=== PATIENT | female | born 1995 | race American Indian/Alaskan Native ===

== ENCOUNTER 2017-08-14 17:19 | Emergency (ER) | payer SELFPAY ==
[2017-08-14 17:47] VITALS: BP 140/89
[2017-08-14 18:14] LABS: Basophils # (Auto) 0.1 K/mm3 (0.0-0.1); Basophils % (Auto) 0.8 % (0.0-1.8); Eosinophils % (Auto) 0.4 % (0.0-4.3); Hematocrit 40.5 % (30.3-42.9); Hemoglobin 13.7 gm/dl (10.1-14.3); Lymphocytes # (Auto) 1.9 K/mm3 (1.2-5.4); Lymphocytes % (Auto) 16.8 % (13.4-35.0); Mean Corpuscular HGB Conc 34 % (30-34); Mean Corpuscular Hemoglobin 32 pg (28-32); Mean Corpuscular Volume 95 fl (79-97); Monocytes # (Auto) 0.8 K/mm3 (0.0-0.8); Platelet Count 362 K/mm3 (140-440); Red Blood Count 4.27 M/mm3 (3.65-5.03); Red Cell Distribution Width 14.8 % (13.2-15.2)
== END 2017-08-14 20:24 | disposition left against medical advice (07) ==
LOC: ED 17:19
DX: N93.9 Abnormal uterine and vaginal bleeding, unspecified (principal); Z53.21 Procedure and treatment not carried out due to patient leaving prior to being seen by health care provider
CPT/HCPCS: 36415; 84702; 85025; 86850; 86900; 86901

== ENCOUNTER 2017-12-18 14:01 | Emergency (ER) | payer MEDICAID ==
[2017-12-18 15:11] VITALS: BP 130/77
--- NOTE | 2017-12-18 18:55 | Ultrasound Report ---
FINAL REPORT EXAM: US OB TRANSVAGINAL HISTORY: vaginal bleeding TECHNIQUE: Ultrasound obstetrical transvaginal PRIORS: None. FINDINGS: Within the lower uterine segment just adjacent to the cervix there is an irregular sac-like structure within irregular echogenic focus seen centrally measuring 1.05 x 0.42 centimeters. No yolk sac identified and no cardiac activity is identified on Doppler evaluation. The right ovary is 2.9 x 1.4 x 2.7 centimeters Left ovary is 2.8 x 1.7 x 1.8 centimeters. Complex cyst cystic structures are observed in the left ovary 0.9 and 0.6 centimeters likely reflecting involuting cysts The uterus measures 8.5 x 3.9 x 4.8 centimeters with endometrial thickness 0.54 centimeters IMPRESSION: On complex structure within the lower uterine segment near the cervix likely reflecting incomplete spontaneous AB
--- NOTE | 2017-12-18 18:56 | Ultrasound Report ---
FINAL REPORT EXAM: US OB < = 14 WEEKS FETUS HISTORY: vaginal bleeding TECHNIQUE: Ultrasound pelvis transabdominal PRIORS: None. FINDINGS: Within the lower uterine segment just adjacent to the cervix there is an irregular sac-like structure within irregular echogenic focus seen centrally measuring 1.05 x 0.42 centimeters. No yolk sac identified and no cardiac activity is identified on Doppler evaluation. The right ovary is 2.9 x 1.4 x 2.7 centimeters Left ovary is 2.8 x 1.7 x 1.8 centimeters. Complex cyst cystic structures are observed in the left ovary 0.9 and 0.6 centimeters likely reflecting involuting cysts The uterus measures 8.5 x 3.9 x 4.8 centimeters with endometrial thickness 0.54 centimeters IMPRESSION: complex structure within the lower uterine segment near the cervix likely reflecting incomplete spontaneous AB
--- NOTE | 2017-12-18 21:04 | Emergency Department Report ---
ED Female HPI - General Chief complaint: Vaginal Bleeding Stated complaint: /CHECK UP/ BLEEDING CRAMPING Time Seen by Provider: 12/18/17 21:01 Source: patient Mode of arrival: Ambulatory Limitations: No Limitations - History of Present Illness Initial comments: 22-year-old Debbie female 2 para 1 comes in stating that she had a positive home test and unsure how many weeks she could be. Patient complains of scant vaginal bleeding intermittently since Friday and abdominal cramping since Friday. She said yesterday is when she had increased vaginal bleeding and cramps were also increase in intensity. Patient not sure when her last menstrual period she thinks it was around September because she had more days or 1 but it was unusually sustained at that time. She did not have a period in October or November. Patient will be she had follow-up with her first was at [place]. -: days(s) (3) Location: suprapubic Severity: moderate Severity scale (0 -10): 5 Quality: cramping Consistency: intermittent Improves with: none Worsens with: none Are you Now?: Yes Associated Symptoms: vaginal bleeding. denies: vaginal discharge - Related Data Sexually active: Yes (men unprotected) : 2 Para: 1 Home Medications Medication Instructions Recorded Confirmed Last Taken No Known Home Medications [No 05/07/13 05/07/13 Unknown Reported Home Medications] Allergies Allergy/AdvReac Type Severity Reaction Status Date / Time No Known Allergies Allergy Verified 03/06/16 19:57 ED Review of Systems ROS: Stated complaint: /CHECK UP/ BLEEDING CRAMPING Other details as noted in HPI Comment: All other systems reviewed and negative Constitutional: denies: chills, fever Gastrointestinal: abdominal pain (pelvic cramping) Genitourinary: other (vaginal bleeding) ED Past Medical Hx - Past Medical History Hx Hypertension: Yes Additional medical history: CHILDBIRTH - Surgical History Additional Surgical History: X 1 - Social History Smoking Status: Current Every Day Smoker Substance Use Type: None - Medications Home Medications: Home Medications Medication Instructions Recorded Confirmed Last Taken Type No Known Home Medications [No 05/07/13 05/07/13 Unknown History Reported Home Medications] ED Physical Exam - General Limitations: No Limitations General appearance: alert, in no apparent distress - Head Head exam: Present: atraumatic, normocephalic - Eye Eye exam: Present: EOMI - ENT ENT exam: Present: mucous membranes moist - Respiratory Respiratory exam: Present: normal lung sounds bilaterally. Absent: respiratory distress - Cardiovascular Cardiovascular Exam: Present: regular rate, normal rhythm. Absent: systolic murmur, diastolic murmur, rubs, gallop - External exam: Present: normal external exam Speculum exam: Present: vaginal bleeding, other (cervical bleeding with clots coming from the os) Bi-manual exam: Present: normal bi-manual exam - Extremities Exam Extremities exam: Present: normal inspection - Back Exam Back exam: Present: normal inspection - Neurological Exam Neurological exam: Present: alert, oriented X3 - Psychiatric Psychiatric exam: Present: agitated - Skin Skin exam: Present: warm, dry, intact, normal color. Absent: rash ED Course Vital Signs 12/18/17 15:06 Temperature 99.3 F Pulse Rate 90 Respiratory 18 Rate Blood Pressure 130/77 O2 Sat by Pulse 100 Oximetry ED Medical Decision Making - Radiology Data Radiology results: report reviewed FINAL REPORT EXAM: US OB TRANSVAGINAL HISTORY: vaginal bleeding TECHNIQUE: Ultrasound obstetrical transvaginal PRIORS: None. FINDINGS: Within the lower uterine segment just adjacent to the cervix there is an irregular sac-like structure within irregular echogenic focus seen centrally measuring 1.05 x 0.42 centimeters. No yolk sac identified and no cardiac activity is identified on Doppler evaluation. The right ovary is 2.9 x 1.4 x 2.7 centimeters Left ovary is 2.8 x 1.7 x 1.8 centimeters. Complex cyst cystic structures are observed in the left ovary 0.9 and 0.6 centimeters likely reflecting involuting cysts The uterus measures 8.5 x 3.9 x 4.8 centimeters with endometrial thickness 0.54 centimeters IMPRESSION: On complex structure within the lower uterine segment near the cervix likely reflecting incomplete spontaneous AB Transcribed By: NOHEMI Dictated By: JODI WERNER MD Electronically Authenticated By: JODI WERNER MD Signed Date/Time: 12/18/171853 DD/ 53 TD/TT: 12/18/171853 - Medical Decision Making She has been evaluated by this provider fast track. Ultrasound pelvic and transvaginal ordered and completed Called to [employer] to discuss case Patient is low prior to having her H&H completed. Critical care attestation.: If time is entered above; I have spent that time in minutes in the direct care of this critically ill patient, excluding procedure time. ED Disposition Disposition: ELOPED Is pt being admited?: No Does the pt Need Aspirin: No Condition: Undetermined Referrals: PRIMARY CARE, [Primary Care Provider] - 3-5 Days
== END 2017-12-18 21:45 | disposition left against medical advice (07) ==
LOC: ED 14:01
DX: O46.90 Antepartum hemorrhage, unspecified, unspecified trimester (principal); O99.330 Smoking (tobacco) complicating pregnancy, unspecified trimester; Z3A.00 Weeks of gestation of pregnancy not specified
CPT/HCPCS: 36415; 76801; 76817; 84702; 86850; 86900; 86901

== ENCOUNTER 2018-10-26 09:05 | Inpatient (IN) | payer MEDICAID ==
--- NOTE | 2018-10-26 09:44 | Anesthesia Day of Surgery ---
Anesthesia Day of Surgery - Day of Surgery Patient Examined: Yes Patient H&P Reviewed: Yes Patient is NPO: Yes Beta Blockers: No Cardiac Clearance: No Pulmonary Clearance: No Candelario's Test: N/A
--- NOTE | 2018-10-26 09:44 | Anesthesia Consultation ---
Anesthesia Consult and Med Hx Date of service: 10/26/18 - Airway Anesthetic Teeth Evaluation: Good ROM Head & Neck: Adequate Mental/Hyoid Distance: Adequate Mallampati Class: Class II Intubation Access Assessment: Probably Good - Pulmonary Exam CTA: Yes - Cardiac Exam Cardiac Exam: RRR - Pre-Operative Health Status ASA Pre-Surgery Classification: ASA2 Proposed Anesthetic Plan: Spinal - Pulmonary Hx Smoking: No Hx Asthma: No Hx Respiratory Symptoms: No SOB: No COPD: No Home Oxygen Therapy: No Hx Pneumonia: No Hx Sleep Apnea: No - Cardiovascular System Hx Hypertension: Yes Hx Coronary Artery Disease: No Hx Heart Attack/AMI: No Hx Angina: No Hx Percutaneous Transluminal Coronary Angioplasty (PTCA): No Hx Cardia Arrhythmia: No Hx Pacemaker: No Hx Internal Defibrillator: No Hx Valvular Heart Disease: No Hx Heart Murmur: No Hx Peripheral Vascular Disease: No - Central Nervous System Hx Neuromuscular Disorder: No Hx Seizures: No CVA: No Hx Back Pain: No Hx Psychiatric Problems: No - Gastrointestinal Hx Ulcer: No Hx Gastroesophageal Reflux Disease: Yes - Endocrine Hx Renal Disease: No Hx End Stage Renal Disease: No Hx Cirrhosis: No Hx Liver Disease: No Hx Insulin Dependent Diabetes: No Hx Non-Insulin Dependent Diabetes: No Hx Thyroid Disease: No Hx Hypothyroidism: No Hx Hyperthyroidism: No - Hematic Hx Anemia: No Hx Sickle Cell Disease: No - Other Systems Hx Alcohol Use: No Hx Substance Use: No Hx Cancer: No Hx Obesity: No
[2018-10-26] MEDS ORDERED: PHENERGAN PR PRN ×2 (10:00→12:46)
[2018-10-26] MEDS ORDERED: PHENERGAN PO PRN (10:00)
[2018-10-26] MEDS ORDERED: SODIUM CHLORIDE FLUSH SYRINGE 10 ML IV PRN (10:00)
[2018-10-26] MEDS ORDERED: DILAUDID IV PRN ×2 (10:00→11:00)
[2018-10-26] MEDS ORDERED: BENADRYL IV PRN (10:00)
[2018-10-26] MEDS ORDERED: LACTATED RINGERS 2,000 ML ONE (10:28)
[2018-10-26] MEDS ORDERED: ZOFRAN IV PRN ×2 (10:30→12:46)
[2018-10-26] MEDS ORDERED: REGLAN ONE (10:51)
[2018-10-26] MEDS ORDERED: PEPCID IV ONE (10:51)
[2018-10-26] MEDS ORDERED: BICITRA ONE (10:51)
[2018-10-26] MEDS ORDERED: ANCEF/STERILE WATER 2 GM/20 ML 2 GM/20 ML SYRINGE IV NR (11:00)
[2018-10-26] MEDS ORDERED: REGLAN IV NR (11:00)
[2018-10-26] MEDS ORDERED: PITOCin/NS 20 UNIT/1000ML DRIP 20 UNITS/1,000 ML BAG IV SCH ×2 (11:00→13:00)
[2018-10-26 11:11] LABS: Basophils % (Auto) 0.5 % (0.0-1.8); Eosinophils # (Auto) 0.1 K/mm3 (0.0-0.4); Eosinophils % (Auto) 0.5 % (0.0-4.3); Hematocrit 38.3 % (30.3-42.9); Hemoglobin 12.9 gm/dl (10.1-14.3); Lymphocytes # (Auto) 1.3 K/mm3 (1.2-5.4); Lymphocytes % (Auto) 12.3 % (13.4-35.0); Mean Corpuscular HGB Conc 34 % (30-34); Mean Corpuscular Volume 100 fl (79-97); Monocytes # (Auto) 0.9 K/mm3 (0.0-0.8); Monocytes % (Auto) 8.9 % (0.0-7.3); Platelet Count 255 K/mm3 (140-440); Red Blood Count 3.82 M/mm3 (3.65-5.03); Red Cell Distribution Width 14.4 % (13.2-15.2)
[2018-10-26] MEDS ORDERED: LACTATED RINGERS 1,000 ML IV ONE (11:36)
[2018-10-26] MEDS ORDERED: PEPCID IV SCH (11:38)
[2018-10-26] MEDS ORDERED: BICITRA PO ONE (11:39)
[2018-10-26] MEDS ORDERED: SUBLIMAZE ONE (11:39)
--- NOTE | 2018-10-26 11:42 | History and Physical Report ---
History of Present Illness Date of examination: 10/26/18 Date of admission: 10/26/18 09:05 Chief complaint: repeat csec scheduled History of present illness: This is a 23 yo at 39 weeks here for scheduled repeat csec. She is a patient of [facility] Past History Past Medical History: no pertinent history Past Surgical History: section Family/Genetic History: none Social history: single. denies: smoking, alcohol abuse, prescription drug abuse - Obstetrical History : 3 Para: 1 Hx # Term Pregnancies: 1 Number of Pregnancies: 0 Spontaneous Abortions: 1 Induced : 0 Number of Living Children: 1 Medications and Allergies Allergies Allergy/AdvReac Type Severity Reaction Status Date / Time No Known Allergies Allergy Verified 03/06/16 19:57 Home Medications Medication Instructions Recorded Confirmed Last Taken Type No Known Home Medications [No 05/07/13 05/07/13 Unknown History Reported Home Medications] Active Meds: Active Medications Citric Acid/Sodium Citrate (Bicitra) 30 ml PO ONCE ONE Stop: 10/26/18 11:40 Last Admin: 10/26/18 11:09 Dose: 30 ml Documented by: Diphenhydramine HCl (Benadryl) 12.5 mg IV Q2H PRN PRN Reason: Itching Famotidine (Pepcid) 20 mg IV QDAY COLEMAN Hydromorphone HCl (Dilaudid) 0.5 mg IV Q5M PRN PRN Reason: Breakthrough Pain Stop: 10/26/18 17:00 Hydromorphone HCl (Dilaudid) 0.5 mg IV Q4H PRN PRN Reason: breakthrough pain > 7/10 Lactated Ringer's (Lactated Ringers) 1,000 mls @ 999 mls/hr IV BOLUS ONE Stop: 10/26/18 12:36 Last Admin: 10/26/18 10:58 Dose: 999 mls/hr Documented by: Oxytocin/Sodium Chloride (Pitocin/Ns 20 Unit/1000ml Drip) 20 units in 1,000 mls @ 0 mls/hr IV TITR COLEMAN Cefazolin Sodium (Ancef/Sterile Water 2 Gm/20 Ml) 2 gm in 20 mls @ 80 mls/hr IV PREOP NR; Protocol Stop: 10/26/18 17:00 Metoclopramide HCl (Reglan) 10 mg IV PREOP NR Stop: 10/26/18 23:01 Last Admin: 10/26/18 11:03 Dose: 10 mg Documented by: Ondansetron HCl (Zofran) 4 mg IV Q8H PRN PRN Reason: Nausea And Vomiting Promethazine HCl (Phenergan) 25 mg PO Q6H PRN PRN Reason: Nausea And Vomiting Promethazine HCl (Phenergan) 25 mg [place] Q6H PRN PRN Reason: Nausea And Vomiting Sodium Chloride (Sodium Chloride Flush Syringe 10 Ml) 10 ml IV PRN PRN PRN Reason: flush Review of Systems All systems: negative - Vital Signs Vital signs: Vital Signs Temp Pulse Resp BP Pulse Ox 98.6 F 102 H 18 129/85 97 10/26/18 09:35 10/26/18 09:35 10/26/18 09:35 10/26/18 09:35 10/26/18 09:35 Temp Pulse Resp BP Pulse Ox 98.6 F 102 H 18 129/85 97 10/26/18 09:35 10/26/18 09:35 10/26/18 09:35 10/26/18 09:35 10/26/18 09:35 - Physical Exam Breasts: Positive: normal Cardiovascular: Regular rate, Normal S1 Lungs: Positive: Clear to auscultation, Normal air movement Abdomen: Positive: normal appearance, soft, normal bowel sounds. Negative: distention, tenderness, guarding Genitourinary (Female): Positive: normal external genitalia, normal perenium Vulva: both: normal Vagina: Positive: normal moisture Uterus: Positive: normal size Anus/Rectum: Positive: normal perianal skin Extremities: Positive: normal. Negative: tenderness Deep Tendon Reflex Grade: Normal +2 - Obstetrical FHR: category 1 Results Result Diagrams: 10/26/18 09:55 Abnormal lab results 10/26/18 Range/Units 09:55 MCV 100 H (79-97) fl MCH 34 H (28-32) pg Lymph % (Auto) 12.3 L (13.4-35.0) % [place] % (Auto) 8.9 H (0.0-7.3) % [place] # 0.9 H (0.0-0.8) K/mm3 Seg Neutrophils % 77.8 H (40.0-70.0) % Seg Neutrophils # 8.1 H (1.8-7.7) K/mm3 All other labs normal. Assessment and Plan A/P HD#1 IUP 40+2 weeks morbid obesity previous csec IVF, labs consent for repeat csec discussed r/b/a which include bleeding, infection, damage to pelvic and non pelvic organs risk of hysterectomy and will proceed with repeat csec
[2018-10-26] MEDS ORDERED: WATER FOR IRRIG STERILE IR ONE (12:05)
[2018-10-26] MEDS ORDERED: NACL 0.9% IR ONE (12:05)
[2018-10-26] MEDS ORDERED: PHENYLEPHRINE/NS Syringe 1,000 MCG/10 ML IV ONE (12:09)
[2018-10-26] MEDS ORDERED: ZOFRAN ONE (12:27)
[2018-10-26] MEDS ORDERED: MILK OF MAGNESIA PO PRN (12:46)
[2018-10-26] MEDS ORDERED: TORADOL IV PRN (12:46)
[2018-10-26] MEDS ORDERED: MORPHINE IV PRN ×2 (12:46)
[2018-10-26] MEDS ORDERED: NARCAN 0.4 MG/1 ML IV PRN ×2 (12:46)
[2018-10-26] MEDS ORDERED: TYLENOL PO PRN (12:46)
[2018-10-26] MEDS ORDERED: TUCKS PAD TP PRN (12:46)
[2018-10-26] MEDS ORDERED: LANSINOH TP PRN (12:46)
[2018-10-26] MEDS ORDERED: ANUCORT-HC PR PRN (12:46)
[2018-10-26] MEDS ORDERED: NORCO 5/325 PO PRN (12:46)
--- NOTE | 2018-10-26 12:57 | Operative Report ---
Operative Report Operative Report: DATE OF OPERATION: 10/26/18 PREOPERATIVE DIAGNOSES: 1. Prior section. 2. Declines vaginal after . 3. A 40 weeks gestation. POSTOPERATIVE DIAGNOSES: 1. Prior section. 2. Declines vaginal after . 3. A 40 weeks gestation. OPERATION PERFORMED: Repeat low transverse . SURGEON: Gely Vera MD ANESTHESIA: Spinal. ESTIMATED BLOOD LOSS: 300 mL. FINDINGS: A viable male weighing 7 pounds 8 oz Apgars 8 and 9 COMPLICATIONS: None. DISPOSITION: Stable. DESCRIPTION OF OPERATION: After informed consent was obtained, the patient was brought back to the operative suite where adequate spinal anesthesia was obta ined. The patient was then placed in the dorsal supine position and prepped and draped in the sterile fashion. A repeat Pfannenstiel skin incision was made with a blade and carried down through the subcutaneous tissues to the fascia, which was extended in the transverse fascia with Trujillo scissors. The fascial incision was then dissected off the rectus muscles both bluntly and sharply. The rectus muscle was in the midline. The peritoneum was entered bluntly. The peritoneal incision was then extended both superiorly and inferiorly with good visualization of the underlying bowel and bladder. The bladder blade was placed, and the vesicouterine fascia was incised to create a bladder flap in a low transverse position. This was developed digitally. A low transverse uterine incision was made with the blade and carried down through the layers of the uterus until membranes bulged through the incision. The uterine incision was then extended digitally. Hand was placed inside the pelvis, and the head was brought up out of the pelvis and delivered atraumatically with gentle fundal pressure. Prior to the head being delivered, actually through the skin, the sound of the baby starting to cry was noted. After the head was delivered, the mouth and nares were aggressively bulb suctioned. Remainder of the infant was delivered, and the was passed to the awaiting nursing staff for additional care. Cord was doubly clamped and cut and cord blood was obtained. The placenta was then manually extracted, and the uterus was exteriorized. The uterus was cleaned of remaining clot. The uterine incision was readily identified and closed in two layers, first one with running locking followed by second imbricating layer of 0 Vicryl. The vesicouterine fascia was then reapproximated with 2-0 Vicryl. The adnexa were within normal limits. The uterus was placed back inside the pelvis. Copious irrigation and inspection of the incision was satisfactory. The peritoneum was then closed with 2-0 Vicryl in a running fashion. The fascia was closed with 1 Vicryl from one angle to the next. Subcutaneous tissues were copiously irrigated, and final bleeders were cauterized. The incision was then r eapproximated with [place] needle in a standard fashion.
[2018-10-26] MEDS ORDERED: D5LR 1,000 ML IV SCH (13:00)
[2018-10-26] MEDS ORDERED: SODIUM CHLORIDE FLUSH SYRINGE 10 ML IV SCH (13:00)
--- NOTE | 2018-10-26 13:04 | Post Anesthesia Evaluation ---
- Post Anesthesia Evaluation Patient Participated: Yes Airway Patent: Yes Stable Respiratory Function: Yes Temp > 96.8F: Yes Pain Manageable: Yes Adequeate Hydration: Yes Anesthesia Complications: No Block Receding Appropriately: Yes Patient on Ventilator: No
[2018-10-26] MEDS: TORADOL IV PRN ×2 (14:43→22:09)
[2018-10-27 00:54] LABS: Hematocrit 32.8 % (30.3-42.9); Hemoglobin 10.8 gm/dl (10.1-14.3)
[2018-10-27] MEDS: PERCOCET 5/325 PO PRN ×3 (02:15→17:02)
[2018-10-27] MEDS ORDERED: BOOSTRIX IM ONE (06:00)
[2018-10-27] MEDS: IBUPROFEN PO PRN ×2 (06:25→17:03)
--- NOTE | 2018-10-27 08:09 | Progress Note ---
Assessment and Plan A/P POD 1 s/p repeat csec routine postop orders CBC stable VSS encourage ambulation Subjective - Subjective Date of service: 10/27/18 Principal diagnosis: s/p repeat c/sec Interval history: This is a 23 yo at 39 weeks here for scheduled repeat csec. She is a patient of [facility] Patient reports: appetite normal, voiding normally, pain well controlled, flatus, ambulating normally : doing well Objective - Vital Signs Latest vital signs: Vital Signs Temp Pulse Resp BP BP Pulse Ox 10/27/18 04:48 98.7 F 87 18 118/65 95 10/27/18 02:15 20 10/26/18 23:29 98.6 F 100 H 20 133/78 96 10/26/18 22:09 20 10/26/18 20:06 98.7 F 93 H 16 116/90 98 10/26/18 18:28 20 10/26/18 16:26 98.2 F 85 18 135/82 10/26/18 14:43 18 10/26/18 14:10 98 F 89 18 137/57 99 10/26/18 13:51 98.3 F 80 15 148/76 98 10/26/18 13:30 71 13 147/76 98 10/26/18 13:15 79 14 129/67 96 10/26/18 13:00 88 15 130/58 97 10/26/18 12:55 85 13 121/58 97 10/26/18 12:51 97.9 F 85 15 112/61 97 10/26/18 09:35 98.6 F 102 H 18 129/85 97 Intake and Output 10/26/18 10/27/18 10/27/18 23:59 07:59 15:59 Intake Total 720 120 Output Total 400 300 Balance 320 -180 Intake: Oral 480 Intake, Free Water 240 120 Output: Urine 400 300 Indwelling Catheter 400 300 Other: Total, Intake Amount 480 Total, Output Amount 400 300 - Exam Breasts: Present: normal Cardiovascular: Present: Regular rate, Normal S1 Lungs: Present: Clear to auscultation, Normal air movement Abdomen: Present: normal appearance, soft, normal bowel sounds. Absent: distention, tenderness, guarding Vulva: both: normal Uterus: Present: normal, firm, fundal height below umbilicus. Absent: bogginess, tenderness Extremities: Present: normal Deep Tendon Reflex Grade: Normal +2 Incision: Present: normal, dry, dressed - Labs Labs: Abnormal lab results 10/26/18 Range/Units 09:55 MCV 100 H (79-97) fl MCH 34 H (28-32) pg Lymph % (Auto) 12.3 L (13.4-35.0) % [place] % (Auto) 8.9 H (0.0-7.3) % [place] # 0.9 H (0.0-0.8) K/mm3 Seg Neutrophils % 77.8 H (40.0-70.0) % Seg Neutrophils # 8.1 H (1.8-7.7) K/mm3
[2018-10-27] MEDS ORDERED: M-M-R II VACCINE SUB-Q ONE (12:47)
[2018-10-27] MEDS: MYLICON PO PRN (17:02)
[2018-10-28] MEDS: PERCOCET 5/325 PO PRN ×2 (00:14→07:41)
[2018-10-28] MEDS: IBUPROFEN PO PRN ×3 (05:49→22:50)
--- NOTE | 2018-10-28 08:30 | Progress Note ---
Assessment and Plan A: POD2 s/p repeat LTCS Abdominal distention after surgery, active bowel sounds VSS, CBC stable P: Administer Magnesium Hydroxide Abdominal binder after relief of distention Anticipate d/c to home tomorrow Subjective - Subjective Date of service: 10/28/18 Principal diagnosis: s/p repeat c/sec Interval history: Pt is a 23 yo on POD2 s/p repeat LTCS at term. Patient reports: appetite normal, voiding normally, pain well controlled, flatus, ambulating normally, no bowel movement [place]: doing well, nursing well, bottle feeding (supplementary) Objective - Vital Signs Latest vital signs: Vital Signs Temp Pulse Resp BP 10/27/18 17:03 18 10/27/18 17:02 18 10/27/18 16:29 99.1 F 84 18 126/71 10/27/18 09:39 20 Intake and Output 10/27/18 10/28/18 10/28/18 23:59 07:59 15:59 Intake Total 720 360 Balance 720 360 Intake: Oral 720 360 Other: Total, Intake Amount 240 120 # Voids Void 1 - Exam Cardiovascular: Present: Regular rate, Normal S1, Normal S2, No murmurs Lungs: Present: Clear to auscultation, Normal air movement Abdomen: Present: distention, normal bowel sounds Uterus: Present: normal, firm, fundal height below umbilicus Extremities: Present: normal Incision: Present: normal, dry, intact
[2018-10-28] MEDS ORDERED: MILK OF MAGNESIA PO SCH ×2 (10:00→14:00)
[2018-10-28] MEDS: FEOSOL PO SCH (10:44)
[2018-10-28] MEDS: PRENATAL VITAMIN PO SCH (10:45)
[2018-10-28] MEDS: MILK OF MAGNESIA PO SCH ×2 (16:36→22:39)
[2018-10-28] MEDS: MYLICON PO PRN (17:24)
[2018-10-29] MEDS: MILK OF MAGNESIA PO SCH (04:05)
--- NOTE | 2018-10-29 08:31 | Progress Note ---
Assessment and Plan A: POD3 s/p repeat LTCS Elevated BP x2- gestational HTN CBC stable P: Discharge to home today Return in 1 week for BP check Subjective - Subjective Date of service: 10/29/18 Principal diagnosis: s/p repeat c/sec Interval history: Pt is a 23 yo on POD3 s/p repeat LTCS at term. Patient reports: appetite normal, voiding normally, pain well controlled, bowel movement, ambulating normally [place]: doing well, nursing well Objective - Vital Signs Latest vital signs: Vital Signs Temp Pulse Resp BP BP Pulse Ox 10/29/18 00:51 98.1 F 89 20 140/73 96 10/28/18 23:50 18 10/28/18 22:50 18 10/28/18 16:55 98.3 F 91 H 20 139/86 Intake and Output 10/28/18 10/29/18 10/29/18 23:59 07:59 15:59 Intake Total 360 Balance 360 Intake: Oral 360 Other: Total, Intake Amount 240 # Voids Void 1 - Exam Cardiovascular: Present: Regular rate, Normal S1, Normal S2, No murmurs Lungs: Present: Normal air movement Abdomen: Present: normal appearance, distention (mild, resolving) Uterus: Present: normal, firm, fundal height below umbilicus Extremities: Present: normal Incision: Present: normal, dry, intact
--- NOTE | 2018-10-29 08:34 | Discharge Summary ---
Providers - Providers Date of Admission: 10/26/18 09:05 Date of discharge: 10/29/18 Attending physician: SONIA SCHMITT MD Primary care physician: SONIA SCHMITT MD Hospitalization Reason for admission: section Delivery: Procedure: repeat low transverse Incision: normal, dry, intact complications: other (elevated BP (gestational hypertension)) Discharge diagnosis: IUP at term delivered [place] baby: male Condition at discharge: Good Disposition: DC- TO HOME OR SELFCARE Plan - Discharge Medications Prescriptions: Ferrous Sulfate [Feosol 325 MG tab] 325 mg PO BID #30 tablet Ibuprofen [Motrin] 600 mg PO Q8H PRN #30 tablet PRN Reason: Pain oxyCODONE /ACETAMINOPHEN [Percocet 5/325] 1 tab PO Q6HR PRN #30 tablet PRN Reason: Pain - Provider Discharge Summary Activity: routine, no sex for 6 weeks, no heavy lifting 4 weeks, no strenuous exercise Diet: routine Instructions: routine Additional instructions: [] Smoking cessation referral if applicable(refer to patient education folder for contact #) [] Refer to [facility]'s [facility] Booklet Call your doctor immediately for: * Fever > 100.5 * Heavy vaginal bleeding ( >1 pad per hour) * Severe persistent headache * Shortness of breath * Reddened, hot, painful area to leg or breast * Drainage or odor from incision. * Keep incision clean and dry at all times and follow doctor's instructions regarding bathing/showering - Follow up plan Follow up: SONIA SCHMITT MD [Primary Care Provider] - 7 Days (Please call to schedule appointment for blood pressure check 1 week .)
[2018-10-29] MEDS: PRENATAL VITAMIN PO SCH (10:48)
[2018-10-29] MEDS: IBUPROFEN PO PRN (10:48)
[2018-10-29] MEDS: FEOSOL PO SCH (10:49)
[2018-10-29 15:16] VITALS: BP 116/66
== END 2018-10-29 15:28 | disposition home or self-care (01) | DRG 766 ==
LOC: APU 09:05 → OB 14:23
PROVIDERS: ADMIT Obstetrics & Gynecology; ATTEND Obstetrics & Gynecology
PROC: 10D00Z1 Extraction of Products of Conception, Low, Open Approach (ICD-10-PCS; principal; 2018-10-26)
PROC: 3E0234Z Introduction of Serum, Toxoid and Vaccine into Muscle, Percutaneous Approach (ICD-10-PCS; 2018-10-27)
DX: O34.211 Maternal care for low transverse scar from previous cesarean delivery (principal); O99.62 Diseases of the digestive system complicating childbirth; O99.214 Obesity complicating childbirth; E66.01 Morbid (severe) obesity due to excess calories; O13.5 Gestational [pregnancy-induced] hypertension without significant proteinuria, complicating the puerperium; K21.9 Gastro-esophageal reflux disease without esophagitis; Z37.0 Single live birth; Z3A.40 40 weeks gestation of pregnancy; Z23 Encounter for immunization
CPT/HCPCS: 36415; 85014; 85018; 85025; 86850; 86900; 86901; 90715; G0378; C9250; J1170; J1885; J2270; J2370; J2405; J2590; J2765; J3010; J7120; J7121